=== PATIENT | female | born 1955 | race African-American/Black ===

== ENCOUNTER 2017-05-27 22:49 | Emergency (ER) | payer OTHER ==
[~2017-05-27] VITALS: Ht 165.1 cm; Wt 65.0 kg
[~2017-05-27 22:49] MED LIST: GLUCOMETER XX; GLUCOMTESTSTRIPS XX; LISI5 PO; METF500 PO; Z.0.LANCETS XX
[2017-05-27 22:58] VITALS: BP 207/102; PULSE 73; RESP 16; TEMP 97.6; O2SAT 98
[2017-05-27] MEDS ORDERED: METO25TA3 PO (23:01)
[2017-05-28 00:25] VITALS: BP 207/104; PULSE 77; RESP 16; O2SAT 99
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
[2017-05-28] MEDS ORDERED: LABETALOL HCL 100 MG/20 ML VIAL IV PUSH ONE (00:45)
[2017-05-28 01:12] VITALS: BP 182/85; PULSE 72; RESP 16; O2SAT 96
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
[2017-05-28 02:03] VITALS: BP 186/86; PULSE 78; RESP 18; O2SAT 98
== END 2017-05-28 02:45 | disposition home or self-care (01) ==
LOC: NEPE 22:49
DX: S80.11XA Contusion of right lower leg, initial encounter (principal); I10 Essential (primary) hypertension; V09.3XXA Pedestrian injured in unspecified traffic accident, initial encounter
CPT/HCPCS: 71010; 72170; 73552; 73590; 96374

== ENCOUNTER 2017-05-31 19:29 | Observation (INO) | payer OTHER ==
[~2017-05-31] VITALS: Ht 162.6 cm; Wt 65.0 kg
[~2017-05-31 19:29] MED LIST changes: -GLUCOMETER XX; -GLUCOMTESTSTRIPS XX; -LISI5 PO; -METF500 PO; +METO25TA3 PO; -Z.0.LANCETS XX
[2017-05-31 19:30] VITALS: BP 162/77; PULSE 78; RESP 16; TEMP 99.1; O2SAT 97
[2017-05-31 22:48] VITALS: BP 176/81; PULSE 67; RESP 18; O2SAT 100
[2017-05-31] MEDS ORDERED: SODIUM CHLORIDE 0.9% FLUSH 10 ML FLUSH IVF PRN (23:30)
[2017-05-31 23:35] VITALS: BP 173/84; PULSE 69; RESP 18; O2SAT 99
--- NOTE | 2017-05-31 23:43 | RADRPT ---
EXAM DATE/TIME: 05/31/2017 23:27 [facility] COMPARISON: CT BRAIN W/O CONTRAST, June 04, 2014, 10:45. INDICATIONS : Left hand pain. Possible stroke. RADIATION DOSE: 56.35 CTDIvol (mGy) MEDICAL HISTORY : Hypertension. Diabetes mellitus type 2. SURGICAL HISTORY : section. ENCOUNTER: Initial ACUITY: 1 week PAIN SCALE: 8/10 LOCATION: cranial TECHNIQUE: Multiple contiguous axial images were obtained of the head. Using automated exposure control and adj ustment of the mA and/or kV according to patient size, radiation dose was kept as low as reasonably a chievable to obtain optimal diagnostic quality images. DICOM format image data is available electro nically for review and comparison. FINDINGS: CEREBRUM: The ventricles are normal for age. No evidence of midline shift, mass lesion, hemorrhage or acute in farction. No extra-axial fluid collections are seen. POSTERIOR FOSSA: The cerebellum and brainstem are intact. The 4th ventricle is midline. The cerebellopontine angle i s unremarkable. EXTRACRANIAL: The visualized portion of the orbits is intact. SKULL: The calvaria is intact. No evidence of skull fracture. CONCLUSION: Negative exam. No change from prior. Silviano Brown MD on May 31, 2017 at 23:40 Board Certified Radiologist. This report was verified electronically.
[2017-05-31 23:59] LABS: AUTOMATED NEUTROPHIL # 3.7 TH/MM3 (1.8-7.7); BASOPHIL # 0.1 TH/MM3 (0-0.2); BASOPHIL % 0.6 % (0.0-2.0); EOSINOPHIL # 0.2 TH/MM3 (0-0.4); EOSINOPHIL % 2.9 % (0.0-4.0); HEMATOCRIT 38.7 % (35.0-46.0); HEMO FLAGS DIFF FINAL; LYMPHOCYTE # 3.7 TH/MM3 (1.0-4.8); MEAN CELL VOLUME 82.1 FL (80.0-100.0); MEAN CORPUSCULAR HEMOGLOBIN 26.5 PG (27.0-34.0); MEAN CORPUSCULAR HGB CONC 32.3 % (32.0-36.0); MONO % 8.3 % (0.0-8.0); NEUT % 44.2 % (16.0-70.0); PLATELET COUNT 223 TH/MM3 (150-450); RED BLOOD COUNT 4.71 MIL/MM3 (4.00-5.30); WHITE BLOOD COUNT 8.4 TH/MM3 (4.0-11.0)
[2017-06-01] VITALS (8 sets, daily range): BP systolic 131–169; BP diastolic 79–86; PULSE 56–68; RESP 16–18; TEMP 97.6–98.6; O2SAT 97–100
[2017-06-01 00:16] LABS: APTT (PATIENT) 26.1 SEC (24.3-30.1); INTERNATIONAL NORMALIZED RATIO 0.9 RATIO; PROTHROMBIN TIME - PATIENT 10.3 SEC (9.8-11.6)
[2017-06-01 00:31] LABS: ALKALINE PHOSPHATASE 90 U/L (45-117); TOTAL BILIRUBIN ADULT 0.2 MG/DL (0.2-1.0)
[2017-06-01 00:32] LABS: ALT (GPT) 18 U/L (10-53); AST (GOT) 17 U/L (15-37); BICARBONATE 32.5 MEQ/L (21.0-32.0); BLOOD UREA NITROGEN 13 MG/DL (7-18); GLOMERULAR FILTRATION RATE 103 ML/MIN (>89)
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
[2017-06-01 01:08] LABS: ANION GAP 4 MEQ/L (5-15); CHLORIDE 103 MEQ/L (98-107); SODIUM (NA) 139 MEQ/L (136-145)
[2017-06-01] MEDS ORDERED: ASPIRIN 81 MG CHEW TAB CHEW ONE (01:45)
[2017-06-01] MEDS ORDERED: SODIUM CHLORIDE 0.9% FLUSH 5 ML FLUSH IV FLUSH PRN (02:00)
[2017-06-01] MEDS ORDERED: DEXTROSE 50% IN WATER 50 ML VIAL(D50) IV PUSH PRN (02:00)
[2017-06-01] MEDS ORDERED: GLUCAGON 1 MG/ML VIAL OTHER PRN (02:00)
[2017-06-01 02:20] LABS: HDL CHOLESTEROL 39.9 MG/DL (40.0-60.0); LDL CHOLESTEROL 113 MG/DL (0-99)
[2017-06-01] MEDS: ENOXAPARIN SODIUM 40 MG/0.4 ML SYRINGE SQ SCH (05:32)
[2017-06-01] MEDS: INSULIN ASPART SUPPLEMENTAL SCALE SQ SCH ×4 (08:00→21:00)
[2017-06-01] MEDS: SODIUM CHLORIDE 0.9% FLUSH 5 ML FLUSH IV FLUSH SCH ×2 (09:00→22:00)
--- NOTE | 2017-06-01 09:03 | RADRPT ---
EXAM DATE/TIME: 06/01/2017 08:33 [facility] COMPARISON: No previous studies available for comparison. INDICATIONS : Left sided weakness. MEDICAL HISTORY : Hypertension. Diabetes mellitus type 2. SURGICAL HISTORY : section. ENCOUNTER: Initial ACUITY: 2 day PAIN SCORE: 0/10 LOCATION: head TECHNIQUE: Multiplanar, multisequence MRI of the brain was performed without contrast. FINDINGS: There are patchy small areas of subacute infarction involving high convexity right frontal cortex and subcortical white matter. There is no evidence of intracranial mass or hemorrhage. Ventricles are sy mmetric and normal. Left hemisphere is intact and unremarkable. Posterior fossa and brainstem structu res are normal. Extracranial structures are benign and intact. CONCLUSION: Patchy small areas of subacute right convexity stroke Jerry Wheeler MD on June 01, 2017 at 8:58 Board Certified Radiologist. This report was verified electronically.
[2017-06-01] MEDS: ASPIRIN 325 MG TAB PO SCH (09:46)
--- NOTE | 2017-06-01 09:46 | RADRPT ---
EXAM DATE/TIME: 06/01/2017 08:33 [facility] COMPARISON: No previous studies available for comparison. INDICATIONS : Extremity weakness. Left arm weakness. MEDICAL HISTORY : Hypertension. Diabetes mellitus type 2. SURGICAL HISTORY : section. ENCOUNTER: Initial ACUITY: 2 day PAIN SCORE: 0/10 LOCATION: neck TECHNIQUE: Multiplanar, multisequence MRI examination of the cervical spine was performed. FINDINGS: Sagittal T1, T2 and inversion recovery images show straightening of the normal lordotic curvature wit h multilevel degenerative disc disease is evident by loss of disc height most prominent from C3-4 thr ough C5-6. Uncovertebral ridging posteriorly is identified at C3-4 and C4-C5 and encroaches on the an terior epidural space. However, there is no significant spinal stenosis or cord compromise. Cord sign al is normal throughout. Posterior fossa is radiographically normal. Schmorl's node in superior endpl ate of C7 with some edema at the edge of the defect. C2-C3: The thecal sac has a normal configuration. There is no evidence of disc herniation or spinal canal s tenosis. The neural foramina are patent bilaterally. C3-C4: Posterior uncovertebral ridging encroaches on the epidural space. Spinal canal and neural foramina ar e adequate C4-C5: Uncovertebral ridging most prominent posteriorly and right posterolateral. This narrows the right stephon ral foramina and may compromise the right C5 nerve root. There is some narrowing of the spinal canal no obvious cord compromise. Left neural foramina is adequate. C5-C6: Uncovertebral ridging most prominent right posterior and posterolateral encroaches on the right neura l foramina but I believe the spinal canal and neural foramina remain adequate at this level. C6-C7: The thecal sac has a normal configuration. There is no evidence of disc herniation or spinal canal s tenosis. The neural foramina are patent bilaterally. C7-T1: The thecal sac has a normal configuration. There is no evidence of disc herniation or spinal canal s tenosis. The neural foramina are patent bilaterally. CONCLUSION: 1. Multilevel degenerative disc disease with loss of disc height most prominent from C3-4 through C5- 6 and associated uncovertebral ridging. 2. There is some encroachment on the spinal canal most prominent at C3-4 and C4-5 but no obvious cord compromise. 3. Foraminal narrowing which may be severe enough to compromise the right C5 nerve root. However, I d o not see any significant narrowing on the left to explain patient's current clinical symptoms Silviano Brown MD on June 01, 2017 at 9:35 Board Certified Radiologist. This report was verified electronically.
--- NOTE | 2017-06-01 11:50 | MB ---
cc: JARED BARKSDALE M.D. DATE OF CONSULTATION 06/01/2017 REASON FOR CONSULTATION She is a 61-year-old seen in neurological consultation with left upper extremity weakness that started almost a week ago. It started to get worse and she came to the emergency room yesterday. HISTORY OF PRESENT ILLNESS She has no apparent ongoing medical problem and has not been following with any doctors. MEDICATIONS She does not take any medications. She does not even take aspirin. SOCIAL HISTORY She smokes and she does not drink alcohol. PAST MEDICAL HISTORY She denies diabetes and denies hypertension but at some point admitted to some possible diabetes in the past. NEUROLOGICAL EXAMINATION An alert and pleasant woman. Extraocular movements and ocular foy full. Pupils are slightly reactive, about the same size. No facial weakness. Speech is normal. She has diffuse left upper extremity weakness, maximum in the muscles distal to the elbow and involves flexor and extensor muscles. The proximal muscles are stronger and she resists significantly with the muscles of both elbows. Reflexes were 1+ at the elbows, trace or absent at the knees and ankles and plantar responses were flexor. I did not ambulate the patient. ANCILLARY DATA The CBC is unremarkable. Chemistry is essentially normal with a glucose of 118. IMAGING STUDIES CT of brain reported negative and MRI brain reports patchy small subacute right convexity stroke. ASSESSMENT Subacute right hemisphere ischemic stroke causing left upper extremity weakness. She has not been on any medication. The EKG shows sinus bradycardia. RECOMMENDATIONS 1. She was started on aspirin and Lovenox subcu prophylaxis. 2. Obtain carotid ultrasound and would also recommend starting her on a statin. 3. Her LDL was 113 and the goal was for LDL below 70. 4. Check an echocardiogram. 5. Occupational therapy. 6. SCDs. Thank you for asking us to assist in her care. I will follow her neurological course. MD JOCELYNN Mccain/DELICIA /11:32 AM /11:38 AM
--- NOTE | 2017-06-01 12:41 | HHI.HP ---
[facility] Service [facility] ([place], [place])ists Primary Care Physician No Primary Care Physician Admission Diagnosis left arm weakness rule out CVA Diagnoses: Chief Complaint: LUE weakness Travel History International Travel<30 Days: No Contact w/Intl Traveler <30 Da: No Traveled to Known Affected Are: No History of Present Illness Written by Denisse Maravilla, acting as scribe for Dr. ePdro on 06/01/17 at 14:05 61-year-old female with history of tobacco use presents with a 1 week history of left arm weakness. The patient reports on Saturday 05/26 her left arm just went "" on her. She states her left arm was just not working like her right arm. 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 She also reports some numbness and tingling down the left arm. Denies any other numbness, tingling, or weakness of the right arm or bilateral lower extremities. Denies fevers but does report some recent chills. Denies any headache, visual changes, dysphagia, or speech difficulties. She does not take any medications, including no aspirin. She has never experienced this before. Her left arm weakness continued to get worse therefore she presented to the ER. She has no other medical complaints at this time. She has a strong family history of stroke. She continues to smoke cigarettes. Review of Systems Except as stated in HPI: all other systems reviewed are Neg Past Family Social History Past Medical History Denies any significant medical problems. Does not see PCP regularly. Past Surgical History Reported Medications No Active Prescriptions or Reported Medications Allergies: Coded Allergies: No Known Allergies (Verified Allergy, Unknown, 06/01/17) Active Ordered Medications Current Medications Medications (Trade) Dose Ordered Sig/Missy Route Start Time Stop Time Status Last Admin (NS Flush) 2 ml BID IV FLUSH 06/01/17 09:00 06/01/17 09:00 (NS Flush) 2 ml UNSCH PRN IV FLUSH 06/01/17 02:00 (Aspirin) 325 mg DAILY PO 06/01/17 09:00 06/01/17 09:46 (Lovenox Inj) 40 mg Q24H SQ 06/01/17 06:00 06/01/17 05:32 (D50w (Vial) Inj) 50 ml UNSCH PRN IV PUSH 06/01/17 02:00 (Glucagon Inj) 1 mg UNSCH PRN OTHER 06/01/17 02:00 (NovoLOG SUPPLEMENTAL SCALE) 1 ACHS SLIDING SCALE SQ 06/01/17 08:00 Family History Mother with kidney problems Father with CVA x3, first stroke around age 47 Social History Smokes tobacco, smoked 1PPD x20+years, now cutting back to 5 cigarettes/day, 1 pack will last almost a week Denies any alcohol or illicit drug use Lives with her daughter on first floor Physical Exam Vital Signs Vital Signs Date Time Temp Pulse Resp B/P (MAP) Pulse Ox O2 Delivery O2 Flow Rate FiO2 06/01/17 12:30 98.0 63 18 169/82 (111) 98 06/01/17 07:49 98.0 66 16 156/86 (109) 98 06/01/17 04:38 98.6 68 18 131/81 (98) 98 06/01/17 02:33 06/01/17 02:19 65 18 158/79 (105) 100 Room Air 06/01/17 00:54 66 18 156/79 (104) 97 Room Air 05/31/17 23:35 69 18 173/84 (113) 99 Room Air 05/31/17 22:48 67 18 176/81 (112) 100 Room Air 05/31/17 19:30 99.1 78 16 162/77 (105) 97 Room Air Physical Exam GENERAL: Well-nourished, well-developed pleasant female patient in [facility]. SKIN: Warm and dry. No rash. HEAD: Normocephalic. Atraumatic. EYES: Pupils equal and round. No scleral icterus. No injection or drainage. ENT: No nasal bleeding or discharge. Mucous membranes pink and moist. NECK: Supple. Trachea midline. CARDIOVASCULAR: Regular rate and rhythm. S1, S2 noted. No murmur appreciated. RESPIRATORY: No accessory muscle use. Clear to auscultation. Breath sounds equal bilaterally. GASTROINTESTINAL: Abdomen soft, non-tender, nondistended. Normoactive bowel sounds x4. MUSCULOSKELETAL: No obvious deformities. Extremities without clubbing, cyanosis , or edema. 2+ left patellar DTRs, 1+ right patellar DTRs. NEUROLOGICAL: Awake and alert. No obvious cranial nerve deficits. Motor grossly within normal limits. 3/5 strength LUE, 5/5 strength RUE, 5/5 strength in bilateral lower extremities. Normal speech. No tongue deviation/lid lag/ facial droop. PSYCHIATRIC: Appropriate mood and affect; insight and judgment normal. Laboratory Laboratory Tests Test 05/31/17 23:45 White Blood Count 8.4 Red Blood Count 4.71 Hemoglobin 12.5 Hematocrit 38.7 Mean Corpuscular Volume 82.1 Mean Corpuscular Hemoglobin 26.5 Mean Corpuscular Hemoglobin Concent 32.3 Red Cell Distribution Width 14.0 Platelet Count 223 Mean Platelet Volume 8.9 Neutrophils (%) (Auto) 44.2 Lymphocytes (%) (Auto) 44.0 Monocytes (%) (Auto) 8.3 Eosinophils (%) (Auto) 2.9 Basophils (%) (Auto) 0.6 Neutrophils # (Auto) 3.7 Lymphocytes # (Auto) 3.7 Monocytes # (Auto) 0.7 Eosinophils # (Auto) 0.2 Basophils # (Auto) 0.1 CBC Comment DIFF FINAL Differential Comment Prothrombin Time 10.3 Prothromb Time International Ratio 0.9 Activated Partial Thromboplast Time 26.1 Blood Urea Nitrogen 13 Creatinine 0.70 Random Glucose 118 Total Protein 7.6 Albumin 3.4 Calcium Level 8.8 Alkaline Phosphatase 90 Aspartate Amino Transf (AST/SGOT) 17 Alanine Aminotransferase (ALT/SGPT) 18 Total Bilirubin 0.2 Sodium Level 139 Potassium Level 4.0 Chloride Level 103 Carbon Dioxide Level 32.5 Anion Gap 4 Estimat Glomerular Filtration Rate 103 Triglycerides Level 103 Cholesterol Level 173 LDL Cholesterol 113 HDL Cholesterol 39.9 Cholesterol/HDL Ratio 4.33 Result Diagram: 05/31/17 2345 05/31/17 2345 Imaging Last Impressions Cervical Spine MRI 06/01/17 0000 Signed Impressions: Service Date/Time: Thursday, June 01, 2017 08:33 - CONCLUSION: 1. Multilevel degenerative disc disease with loss of disc height most prominent from C3-4 through C5-6 and associated uncovertebral ridging. 2. There is some encroachment on the spinal canal most prominent at C3-4 and C4-5 but no obvious cord compromise. 3. Foraminal narrowing which may be severe enough to compromise the right C5 nerve root. However, I do not see any significant narrowing on the left to explain patient's current clinical symptoms Silviano Brown MD Brain MRI 06/01/17 0000 Signed Impressions: Service Date/Time: Thursday, June 01, 2017 08:33 - CONCLUSION: Patchy small areas of subacute right convexity stroke Jerry Wheeler MD Head CT 05/31/17 2323 Signed Impressions: Service Date/Time: Wednesday, May 31, 2017 23:27 - CONCLUSION: Negative exam. No change from prior. Silviano Brown MD Capsarai VTE Risk Assessment Caprini VTE Risk Assessment: Mod/High Risk (score >= 2) Caprini Risk Assessment Model Point Value = 1 Point Value = 2 Point Value = 3 Point Value = 5 Age 41-60 Minor surgery BMI > 25 kg/m2 Swollen legs Varicose veins or History of unexplained or recurrent spontaneous Oral contraceptives or hormone replacement Sepsis (< 1 month) Serious lung disease, including pneumonia (< 1 month) Abnormal pulmonary function Acute myocardial infarction Congestive heart failure (< 1 month) History of inflammatory bowel disease Medical patient at bed rest Age 61-74 Arthroscopic surgery Major open surgery (> 45 min) Laparoscopic surgery (> 45 min) Malignancy Confined to bed (> 72 hours) Immobilizing plaster cast Central venous access Age >= 75 History of VTE Family history of VTE Factor V Leiden Prothrombin [id number] Lupus anticoagulant Anticardiolipin antibodies Elevated serum homocysteine Heparin-induced thrombocytopenia Other congenital or acquired thrombophilia Stroke (< 1 month) Elective arthroplasty Hip, pelvis, or leg fracture Acute spinal cord injury (< 1 month) Prophylaxis Regimen Total Risk Factor Score Risk Level Prophylaxis Regimen 0-1 Low Early ambulation 2 Moderate Order ONE of the following: *Sequential Compression Device (SCD) *Heparin 5000 units SQ BID 3-4 Higher Order ONE of the following medications: *Heparin 5000 units SQ TID *Enoxaparin/Lovenox 40 mg SQ daily (WT < 150 kg, CrCl > 30 mL/min) *Enoxaparin/Lovenox 30 mg SQ daily (WT < 150 kg, CrCl > 10-29 mL/min) *Enoxaparin/Lovenox 30 mg SQ BID (WT < 150 kg, CrCl > 30 mL/min) AND/OR *Sequential Compression Device (SCD) 5 or more Highest Order ONE of the following medications: *Heparin 5000 units SQ TID (Preferred with Epidurals) *Enoxaparin/Lovenox 40 mg SQ daily (WT < 150 kg, CrCl > 30 mL/min) *Enoxaparin/Lovenox 30 mg SQ daily (WT < 150 kg, CrCl > 10-29 mL/min) *Enoxaparin/Lovenox 30 mg SQ BID (WT < 150 kg, CrCl > 30 mL/min) AND *Sequential Compression Device (SCD) Assessment and Plan Problem List: (1) Ischemic cerebrovascular accident (CVA) ICD Code: I63.9 - Cerebral infarction, unspecified (2) Left arm weakness ICD Code: R29.898 - Other symptoms and signs involving the musculoskeletal system Status: Acute (3) Hypertension ICD Code: I10 - Hypertension Status: Chronic (4) Hyperlipidemia LDL goal <70 ICD Code: E78.5 - Hyperlipidemia, unspecified Assessment and Plan 61-year-old female with history of tobacco use presents with a 1 week history of left arm weakness. Subacute Right Convexity Ischemic CVA: patient with neurological deficit, +LUE weakness, x1week. -Brain MRI images reviewed, shows patchy small areas of subacute right convexity stroke -Ruled out cervical radiculopathy with C-spine MRI with DDD and some foraminal narrowing at right C5 nerve root however no findings to explain LUE weakness -Started on aspirin -Lipid panel with elevated LDL 113, goal < 70, started on statin therapy with Lipitor -Check Hemoglobin A1c -Consult stroke navigator, PT/OT -Monitor on telemetry -Check Carotid U/S -Check echocardiogram -Consult neurology, appreciate recommendations Tobacco Use: chronic -counseled on cessation -avoid nicotine patch due to vasoconstriction and with stroke Hypertension: patient not on antihypertensives upon arrival, also does not follow with a PCP -blood pressure has been consistently elevated around 150-160s/80s -given stroke onset 1 week ago, will initiate BP control -started on lisinopril 5mg daily for now, adjust dosing as needed Hyperlipidemia: patient not on medications upon arrival. LDL 113, goal LDL < 70 with stroke as above. -LFTs wnl -started on Lipitor 40mg hs DVT Prophylaxis: Lovenox sq Code Status Full Code Discussed Condition With Patient, RN Attending Statement This note was transcribed by héctor Maravilla. I, Dr. Cleveland Pedro personally performed the history, physical exam, and medical decision making; and confirmed the accuracy of the information in the transcribed note. Authenticated by Dr. Cleveland Pedro on 06/01/17 at 17:18. Denisse Maravilla PA-C Jun 01, 2017 12:41 Cleveland Pedro MD Jun 01, 2017 17:18
--- NOTE | 2017-06-01 15:40 | RADRPT ---
EXAM DATE/TIME: 06/01/2017 14:32 [place] COMPARISON: No previous studies available for comparison. INDICATIONS : Cerebrovascular accident. MEDICAL HISTORY : Hypertension. Tobacco use. SURGICAL HISTORY : section. ENCOUNTER: Initial ACUITY: 1 day PAIN SCORE: 0/10 LOCATION: Bilateral neck PEAK SYSTOLIC VELOCITIES (cm/sec): ICA/CCA RATIO: Right: 1.1 Left: 1.3 ICA: Right: 90 Left: 103 CCA: Right: 83 Left: 80 ECA: Right: 70 Left: 75 VERTEBRAL: Right: 47 antegrade Left: 58 antegrade Elevated flow velocities and ICA/CCA ratios have been found to correlate with increased degrees of vessel stenosis, calculated as percentage of diameter relative to a normal segment of distal ICA/CCA FINDINGS: RIGHT CAROTID: No significant stenosis is visualized. The waveforms are within normal limits. LEFT CAROTID: No significant stenosis is visualized. The waveforms are within normal limits. VERTEBRAL ARTERIES: Antegrade flow is seen in both vertebral arteries. MISCELLANEOUS: None. CONCLUSION: No evidence of flow-limiting carotid stenosis. Jerry Wheeler MD on June 01, 2017 at 15:36 Board Certified Radiologist. This report was verified electronically.
[2017-06-01 15:47] LABS: HEMOGLOBIN A1a 1.4 %; HEMOGLOBIN A1b 1.8 %; HEMOGLOBIN Ao 82.9 %; HEMOGLOBIN LA1C 2.1 %
[2017-06-01] MEDS ORDERED: LISINOPRIL 5 MG TAB PO ONE (16:00)
--- NOTE | 2017-06-01 17:40 | ECHRPT ---
Indication: CVA/TIA CONCLUSIONS Normal left ventricular size. Wall thickness is normal. The left ventricular systolic function is low normal with an estimated ejection fraction in the rang e of 50- 55%. No definite regional wall motion abnormalities. Trace tricuspid regurgitation. Trace mitral valve regurgitation. BP: 169 / 82 HR: 63 Rhythm: MEASUREMENTS (Male / Female) Normal Values Technical Quality: 2D ECHO LV Diastolic Diameter PLAX 4.1 cm 4.2 - 5.9 / 3.9 - 5.3 cm LV Systolic Diameter PLAX 3.4 cm IVS Diastolic Thickness 0.8 cm 0.6 - 1.0 / 0.6 - 0.9 cm LVPW Diastolic Thickness 0.7 cm 0.6 - 1.0 / 0.6 - 0.9 cm LV Relative Wall Thickness 0.4 RV Internal Dim ED PLAX 1.5 cm LA Systolic Diameter LX 3.2 cm 3.0 - 4.0 / 2.7 - 3.8 cm DOPPLER Mitral E Point Velocity 80.9 cm/s Mitral A Point Velocity 58.2 cm/s Mitral E to A Ratio 1.4 TR Peak Velocity 273.0 cm/s TR Peak Gradient 29.8 mmHg FINDINGS LEFT VENTRICLE Normal left ventricular size. Wall thickness is normal. The left ventricular systolic function is low normal with an estimated ejection fraction in the rang e of 50- 55%. No definite regional wall motion abnormalities. RIGHT VENTRICLE Normal right ventricular size and systolic function. LEFT ATRIUM The left atrial size is normal. RIGHT ATRIUM The right atrial size is normal. ATRIAL SEPTUM Normal atrial septal thickness without atrial level shunting by limited color doppler interrogation. AORTA The aortic root and proximal ascending aorta are normal in size on limited imaging. MITRAL VALVE Trace mitral valve regurgitation. Mitral annular calcification is present. AORTIC VALVE Trileaflet aortic valve. No aortic valve stenosis or regurgitation. TRICUSPID VALVE Structurally normal tricuspid valve. Trace tricuspid regurgitation. PULMONARY VALVE The pulmonary valve is not well visualized. VESSELS The inferior vena cava is normal in size. PERICARDIUM There is a trivial pericardial effusion present. Robert Hawkins MD (Electronically Signed) Final Date:01 June 2017 17:40
--- NOTE | 2017-06-01 17:43 | EKG ---
Date Performed: 05/31/2017 Time Performed: 23:01:54 PTAGE: 61 years EKG: SINUS BRADYCARDIA POSSIBLE RIGHT VENTRICULAR CONDUCTION DELAY Since previous tracing, no si gnificant change noted BORDERLINE ECG PREVIOUS TRACING : 11/05/2015 12.04 DOCTOR: Lianne Mccracken Interpretating Date/Time 06/01/2017 17:42:29
[2017-06-01] MEDS ORDERED: ATORVASTATIN 40 MG TAB PO SCH (21:00)
[2017-06-02] VITALS: BP 133/72; PULSE 63; RESP 18; TEMP 97.9; O2SAT 98
[2017-06-02 00:05] VITALS: PULSE 56
[2017-06-02 03:36] VITALS: PULSE 58
[2017-06-02 04:55] VITALS: BP 133/72; PULSE 58; RESP 18; TEMP 98.4; O2SAT 98
[2017-06-02] MEDS: ENOXAPARIN SODIUM 40 MG/0.4 ML SYRINGE SQ SCH (06:22)
[2017-06-02 08:00] VITALS: PULSE 57
[2017-06-02] MEDS: INSULIN ASPART SUPPLEMENTAL SCALE SQ SCH (08:00)
[2017-06-02] MEDS ORDERED: LISI-519 PO (08:24)
[2017-06-02] MEDS ORDERED: ATOR40TA16 PO (08:24)
[2017-06-02] MEDS ORDERED: ASPI81TA23 PO (08:24)
[2017-06-02] MEDS ORDERED: METF500T PO (08:24)
--- NOTE | 2017-06-02 08:46 | HHI.PR ---
Subjective Remarks Patient says she is feeling all right. Denies any chest pain or shortness of breath. Denies any nausea or vomiting. Says she feels like she can go home. Left arm weakness slightly improved. Objective Vital Signs Date Time Temp Pulse Resp B/P (MAP) Pulse Ox O2 Delivery O2 Flow Rate FiO2 06/02/17 04:55 98.4 58 18 133/72 (92) 98 06/02/17 03:36 58 06/02/17 00:05 56 06/02/17 00:00 97.9 63 18 133/72 (92) 98 06/01/17 20:45 59 06/01/17 19:58 97.8 56 16 151/83 (105) 98 06/01/17 16:42 97.6 56 16 147/82 (103) 97 06/01/17 12:30 98.0 63 18 169/82 (111) 98 Result Diagram: 05/31/17 2345 05/31/17 2345 Imaging Last Impressions Cervical Spine MRI 06/01/17 0000 Signed Impressions: Service Date/Time: Thursday, June 01, 2017 08:33 - CONCLUSION: 1. Multilevel degenerative disc disease with loss of disc height most prominent from C3-4 through C5-6 and associated uncovertebral ridging. 2. There is some encroachment on the spinal canal most prominent at C3-4 and C4-5 but no obvious cord compromise. 3. Foraminal narrowing which may be severe enough to compromise the right C5 nerve root. However, I do not see any significant narrowing on the left to explain patient's current clinical symptoms Silviano Brown MD Carotid Artery Ultrasound 06/01/17 0000 Signed Impressions: Service Date/Time: Thursday, June 01, 2017 14:32 - CONCLUSION: No evidence of flow-limiting carotid stenosis. Jerry Wheeler MD Brain MRI 06/01/17 0000 Signed Impressions: Service Date/Time: Thursday, June 01, 2017 08:33 - CONCLUSION: Patchy small areas of subacute right convexity stroke Jerry Wheeler MD Head CT 05/31/17 [id number] Signed Impressions: Service Date/Time: Wednesday, May 31, 2017 23:27 - CONCLUSION: Negative exam. No change from prior. Silviano Brown MD Objective Remarks GENERAL: Patient sitting up in bed. Appears comfortable. SKIN: Warm and dry. HEAD: Normocephalic. EYES: No scleral icterus. No injection or drainage. NECK: Supple, trachea midline. No JVD. CARDIOVASCULAR: Regular rate and rhythm without murmurs, gallops, or rubs. RESPIRATORY: Breath sounds equal bilaterally. No accessory muscle use. GASTROINTESTINAL: Abdomen soft, non-tender, nondistended. MUSCULOSKELETAL: No cyanosis, or edema. Neurologic. Left arm with 4-5 strength. Right arm 5 over 5 strength. Legs 5- 5 strength bilaterally. A/P Assessment and Plan 61-year-old female with history of tobacco use presents with a 1 week history of left arm weakness. //Subacute Right Convexity Ischemic CVA: patient with neurological deficit, + LUE weakness, x1week. -Brain MRI images reviewed, shows patchy small areas of subacute right convexity stroke -Ruled out cervical radiculopathy with C-spine MRI with DDD and some foraminal narrowing at right C5 nerve root however no findings to explain LUE weakness -Started on aspirin -Lipid panel with elevated LDL 113, goal < 70, started on statin therapy with Lipitor -Check Hemoglobin A1c -Consult stroke navigator, PT/OT -Monitor on telemetry -Check Carotid U/S -Check echocardiogram -Consult neurology, appreciate recommendations = Discharge home. Rx written for outpatient occupational therapy. Aspirin, statin, BJ inhibitor prescriptions written. Referral to primary care. Discussed diabetes with patient. We'll avoid carbohydrates, sugars. Metformin prescription written. //Tobacco Use: chronic -counseled on cessation -avoid nicotine patch due to vasoconstriction and with stroke = Patient says she will quit. //Hypertension: patient not on antihypertensives upon arrival, also does not follow with a PCP -blood pressure has been consistently elevated around 150-160s/80s -given stroke onset 1 week ago, will initiate BP control -started on lisinopril 5mg daily for now, adjust dosing as needed = Blood pressure acceptable. Continue BJ inhibitor. //Hyperlipidemia: patient not on medications upon arrival. LDL 113, goal LDL < 70 with stroke as above. -LFTs wnl -started on Lipitor 40mg hs and continue //DVT Prophylaxis: Lovenox sq Discharge Planning Started home in good condition. Diabetic diet. Activity ad ghazal. Please see discharge medication reconciliation for medication list. Follow-up with primary care, neurology. Cleveland Pedro MD Jun 02, 2017 08:45
[2017-06-02 08:50] VITALS: BP 133/65; PULSE 59; RESP 16; TEMP 98.8; O2SAT 99
[2017-06-02] MEDS: ASPIRIN 325 MG TAB PO SCH (08:54)
[2017-06-02] MEDS: SODIUM CHLORIDE 0.9% FLUSH 5 ML FLUSH IV FLUSH SCH (08:54)
[2017-06-02] MEDS ORDERED: LISINOPRIL 5 MG TAB PO SCH (09:00)
== END 2017-06-02 09:57 | disposition home or self-care (01) ==
LOC: NEPD 19:29 → NEDA 06-01 01:40 → NEPHCDU 06-01 02:49
PROVIDERS: ADMIT Internal Medicine; ATTEND Internal Medicine
DX: I63.9 Cerebral infarction, unspecified (principal); R29.898 Other symptoms and signs involving the musculoskeletal system; R00.1 Bradycardia, unspecified; I10 Essential (primary) hypertension; E78.5 Hyperlipidemia, unspecified; E11.9 Type 2 diabetes mellitus without complications; F17.210 Nicotine dependence, cigarettes, uncomplicated; Z82.3 Family history of stroke; Z79.84 Long term (current) use of oral hypoglycemic drugs
CPT/HCPCS: 70450; 70551; 72141; 80053; 80061; 82948; 83036; 85025; 85610; 85730; 93005; 93306; 93880; 96372; 97162; 97167; 99285; G0378; G8984; G8985; G8987; G8988; J1650; J1815

== ENCOUNTER 2017-07-28 17:22 | Emergency (ER) | payer SELFPAY ==
[~2017-07-28] VITALS: Ht 160 cm; Wt 65.0 kg
[~2017-07-28 17:22] MED LIST changes: +ASPI81TA23 PO; +ATOR40TA16 PO; +LISI-519 PO; +METF500T PO; -METO25TA3 PO
[2017-07-28 17:26] VITALS: BP 127/76; PULSE 17; PULSE 91; RESP 17; TEMP 97.9; O2SAT 98
[2017-07-28 17:36] VITALS: BP_SYST 127; BP_SYST 128; BP_SYST 131; BP_DIAS 67; BP_DIAS 72; BP_DIAS 76; RESP 17; RESP 19; RESP 20
[2017-07-28] MEDS ORDERED: SODIUM CHLORID 0.9% 500 ML INJ 500 ML IV ONE (17:45)
[2017-07-28] MEDS ORDERED: SODIUM CHLORIDE 0.9% FLUSH 10 ML FLUSH IVF PRN (17:45)
--- NOTE | 2017-07-28 17:56 | PD ---
HPI Chief Complaint: Syncope/Near-Syncope Time Seen by Provider: 17:28 Travel History International Travel<30 days: No Contact w/Intl Traveler<30days: No Traveled to known affect area: No History of Present Illness HPI The patient is a 61-year-old [place] female who presents to the emergency department for near syncope. The patient was shopping at [employer] earlier today for items to cook [employer]. The patient states she suddenly became lightheaded and felt "faint". The patient states she was able to sit down onto the floor, had no true syncopal episode. She denied any chest pain, shortness of breath, nausea, vomiting, or diaphoresis. The patient's blood sugar apparently was in the 160s according to EMS. The patient does have a history of similar symptoms in the past, has had multiple admissions for syncope and near syncope. The patient states her symptoms have currently resolved and is currently requesting to go home. She denies any palpitations. Symptoms are mild to moderate, resolved on their own. PFSH Past Medical History Asthma: No Blood Disorders: No Anxiety: No Depression: Yes Cancer: No Cardiovascular Problems: No COPD: No Diabetes: Yes Patient Takes Glucophage: Yes Diminished Hearing: No Endocrine: No Genitourinary: No Hypertension: Yes Immune Disorder: No Musculoskeletal: No Psychiatric: Yes Reproductive: No Respiratory: No Immunizations Current: Yes Sleep Apnea: No Tetanus Vaccination: Unknown Influenza Vaccination: No ?: Not Menopausal: Yes Past Surgical History Section: Yes Other Surgery: Yes (C Section) Social History Alcohol Use: No Tobacco Use: Yes (5 CIGS A DAY ) Substance Use: No Allergies-Medications (Allergen,Severity, Reaction): Coded Allergies: No Known Allergies (Verified Allergy, Unknown, 07/28/17) Reported Meds & Prescriptions Reported Meds & Active Scripts Active Metformin (Metformin HCl) 500 Mg Tab 500 Mg PO BIDPC Aspirin EC (Aspirin) 81 Mg Tabdr 81 Mg PO DAILY Atorvastatin (Atorvastatin Calcium) 40 Mg Tab 40 Mg PO HS 30 Days Lisinopril 5 Mg Tab 5 Mg PO DAILY 30 Days Review of Systems Except as stated in HPI: all other systems reviewed are Neg General / Constitutional: No: Fever Eyes: Positive: Visual changes HENT: Positive: Lightheadedness Cardiovascular: Positive: Syncope (near syncope), No: Chest Pain or Discomfort Respiratory: No: Shortness of Breath Gastrointestinal: No: Nausea, Vomiting, Abdominal Pain Musculoskeletal: Positive: Weakness Neurologic: Positive: Dizziness Physical Exam Narrative GENERAL: Awake, alert, pleasant 61-year-old female who appears her stated age and is in no acute respiratory distress. SKIN: Focused skin assessment warm/dry. HEAD: Atraumatic. Normocephalic. Patient's weight has been pulled posteriorly. EYES: Pupils equal and round. Left eye with mild extropia. Patient is able to see fingers at a distance of 2 feet from both eyes. ENT: No nasal bleeding or discharge. Poor dentition. NECK: Trachea midline. No JVD. CARDIOVASCULAR: Regular rate and rhythm. No murmur appreciated. RESPIRATORY: No accessory muscle use. Clear to auscultation. Breath sounds equal bilaterally. GASTROINTESTINAL: Abdomen soft, non-tender, nondistended. No rebound tenderness. MUSCULOSKELETAL: No obvious deformities. No clubbing. No cyanosis. No edema. NEUROLOGICAL: Awake and alert. No obvious cranial nerve deficits. Motor grossly within normal limits. Normal speech. Nonfocal. Oriented 4. Follows commands without difficulty. No drift of the upper or lower extremities. PSYCHIATRIC: Appropriate mood and affect; insight and judgment normal. Data Data Last Documented VS Vital Signs Date Time Temp Pulse Resp B/P (MAP) Pulse Ox O2 Delivery O2 Flow Rate FiO2 07/28/17 18:05 97 07/28/17 17:36 91 17 84 20 92 19 07/28/17 17:26 97.9 Orders Orders Complete Blood Count With Diff (07/28/17 17:43) Comprehensive Metabolic Panel (07/28/17 17:43) Magnesium (Mg) (07/28/17 17:43) Ecg Monitoring (07/28/17 17:43) Iv Access Insert/Monitor (07/28/17 17:43) Oximetry (07/28/17 17:43) Sodium Chloride 0.9% Flush (Ns Flush) (07/28/17 17:45) Orthostatic Vital Signs (07/28/17 17:43) Sodium Chlorid 0.9% 500 Ml Inj (Ns 500 M (07/28/17 17:45) Labs Laboratory Tests Test 07/28/17 17:50 White Blood Count 10.0 TH/MM3 Red Blood Count 4.36 MIL/MM3 Hemoglobin 11.6 GM/DL Hematocrit 35.2 % Mean Corpuscular Volume 80.9 FL Mean Corpuscular Hemoglobin 26.7 PG Mean Corpuscular Hemoglobin Concent 33.0 % Red Cell Distribution Width 14.3 % Platelet Count 133 TH/MM3 Mean Platelet Volume 8.6 FL Neutrophils (%) (Auto) 63.3 % Lymphocytes (%) (Auto) 25.8 % Monocytes (%) (Auto) 10.1 % Eosinophils (%) (Auto) 0.4 % Basophils (%) (Auto) 0.4 % Neutrophils # (Auto) 6.3 TH/MM3 Lymphocytes # (Auto) 2.6 TH/MM3 Monocytes # (Auto) 1.0 TH/MM3 Eosinophils # (Auto) 0.0 TH/MM3 Basophils # (Auto) 0.0 TH/MM3 CBC Comment DIFF FINAL Differential Comment Blood Urea Nitrogen 11 MG/DL Creatinine 0.99 MG/DL Random Glucose 145 MG/DL Total Protein 7.2 GM/DL Albumin 3.3 GM/DL Calcium Level 8.7 MG/DL Magnesium Level 1.8 MG/DL Alkaline Phosphatase 90 U/L Aspartate Amino Transf (AST/SGOT) 16 U/L Alanine Aminotransferase (ALT/SGPT) 14 U/L Total Bilirubin 0.5 MG/DL Sodium Level 139 MEQ/L Potassium Level 4.0 MEQ/L Chloride Level 102 MEQ/L Carbon Dioxide Level 31.0 MEQ/L Anion Gap 6 MEQ/L Estimat Glomerular Filtration Rate 69 ML/MIN MDM Medical Decision Making Medical Screen Exam Complete: Yes Emergency Medical Condition: Yes Medical Record Reviewed: Yes Interpretation(s) EKG reveals sinus rhythm with a rate 83. Nonspecific T wave changes. Laboratory Tests Test 07/28/17 17:50 White Blood Count 10.0 TH/MM3 Red Blood Count 4.36 MIL/MM3 Hemoglobin 11.6 GM/DL Hematocrit 35.2 % Mean Corpuscular Volume 80.9 FL Mean Corpuscular Hemoglobin 26.7 PG Mean Corpuscular Hemoglobin Concent 33.0 % Red Cell Distribution Width 14.3 % Platelet Count 133 TH/MM3 Mean Platelet Volume 8.6 FL Neutrophils (%) (Auto) 63.3 % Lymphocytes (%) (Auto) 25.8 % Monocytes (%) (Auto) 10.1 % Eosinophils (%) (Auto) 0.4 % Basophils (%) (Auto) 0.4 % Neutrophils # (Auto) 6.3 TH/MM3 Lymphocytes # (Auto) 2.6 TH/MM3 Monocytes # (Auto) 1.0 TH/MM3 Eosinophils # (Auto) 0.0 TH/MM3 Basophils # (Auto) 0.0 TH/MM3 CBC Comment DIFF FINAL Differential Comment Blood Urea Nitrogen 11 MG/DL Creatinine 0.99 MG/DL Random Glucose 145 MG/DL Total Protein 7.2 GM/DL Albumin 3.3 GM/DL Calcium Level 8.7 MG/DL Magnesium Level 1.8 MG/DL Alkaline Phosphatase 90 U/L Aspartate Amino Transf (AST/SGOT) 16 U/L Alanine Aminotransferase (ALT/SGPT) 14 U/L Total Bilirubin 0.5 MG/DL Sodium Level 139 MEQ/L Potassium Level 4.0 MEQ/L Chloride Level 102 MEQ/L Carbon Dioxide Level 31.0 MEQ/L Anion Gap 6 MEQ/L Estimat Glomerular Filtration Rate 69 ML/MIN Differential Diagnosis Differential diagnosis includes syncope, near-syncope, arrhythmia, electrolyte abnormality, hypoglycemia, hyponatremia, aortic stenosis. Narrative Course IV was established, labs are drawn and sent, and the patient was placed on cardiac telemetry monitoring and continuous pulse oximetry monitoring. EKG was ordered and interpreted. Orthostatic vital signs were obtained. Labs are unremarkable. EKG was unremarkable. Cardiac telemetry monitoring reveals the patient is been in a sinus rhythm in the 70s and 80s. Patient is had multiple previous workups and is stable for outpatient follow-up. Diagnosis Primary Impression: Near syncope Patient Instructions: General Instructions Additional Instructions: Please provide a patient a copy of labs and EKG at discharge. Follow-up with her primary physician. Return if symptoms worsen or progress. Med/Other Pt SpecificInfo: No Change to Meds Disposition: 01 DISCHARGE HOME Condition: Stable Julio Cesar Oro MD Jul 28, 2017 17:56
[2017-07-28 18:05] VITALS: O2SAT 97
[2017-07-28 18:20] LABS: AUTOMATED NEUTROPHIL # 6.3 TH/MM3 (1.8-7.7); BASOPHIL % 0.4 % (0.0-2.0); EOSINOPHIL % 0.4 % (0.0-4.0); HEMATOCRIT 35.2 % (35.0-46.0); HEMOGLOBIN 11.6 GM/DL (11.6-15.3); LYMPH % 25.8 % (9.0-44.0); LYMPHOCYTE # 2.6 TH/MM3 (1.0-4.8); MEAN CELL VOLUME 80.9 FL (80.0-100.0); MEAN CORPUSCULAR HEMOGLOBIN 26.7 PG (27.0-34.0); MEAN PLATELET VOLUME 8.6 FL (7.0-11.0); MONO % 10.1 % (0.0-8.0); NEUT % 63.3 % (16.0-70.0); PLATELET COUNT 133 TH/MM3 (150-450); RED BLOOD COUNT 4.36 MIL/MM3 (4.00-5.30); RED CELL DISTRIBUTION WIDTH 14.3 % (11.6-17.2)
[2017-07-28 18:43] LABS: ALBUMIN 3.3 GM/DL (3.4-5.0); ALT (GPT) 14 U/L (10-53); AST (GOT) 16 U/L (15-37); BLOOD UREA NITROGEN 11 MG/DL (7-18); CALCIUM 8.7 MG/DL (8.5-10.1); CHLORIDE 102 MEQ/L (98-107); CREATININE 0.99 MG/DL (0.50-1.00); GLOMERULAR FILTRATION RATE 69 ML/MIN (>89); GLUCOSE,RANDOM 145 MG/DL (74-106); MAGNESIUM 1.8 MG/DL (1.5-2.5); SODIUM (NA) 139 MEQ/L (136-145)
[2017-07-28 18:46] LABS: ALKALINE PHOSPHATASE 90 U/L (45-117); TOTAL BILIRUBIN ADULT 0.5 MG/DL (0.2-1.0); TOTAL PROTEIN 7.2 GM/DL (6.4-8.2)
[2017-07-28 19:07] VITALS: BP 133/73; PULSE 86; RESP 20; O2SAT 99
--- NOTE | 2017-07-29 00:33 | EKG ---
Date Performed: 07/28/2017 Time Performed: 17:38:29 PTAGE: 61 years EKG: Sinus rhythm NONSPECIFIC T-WAVE ABNORMALITY BORDERLINE ECG INTERPRETATION BASED ON A DEFAULT AGE OF 40 YEARS PREVIOUS TRACING : 05/31/2017 23.01 Compared to prior tracing, rate has increased, and w ith non-specific ST/T wave changes DOCTOR: Ming Marion Interpretating Date/Time 07/29/2017 00:32:05
== END 2017-07-28 19:46 | disposition home or self-care (01) ==
LOC: NEPC 17:22
DX: R55 Syncope and collapse (principal); R42 Dizziness and giddiness; R53.1 Weakness; R94.31 Abnormal electrocardiogram [ECG] [EKG]; F32.9 Major depressive disorder, single episode, unspecified; E11.9 Type 2 diabetes mellitus without complications; I10 Essential (primary) hypertension; F17.210 Nicotine dependence, cigarettes, uncomplicated; Z79.82 Long term (current) use of aspirin
CPT/HCPCS: 80053; 83735; 85025; 93005; 96360; 99284; J7040